=== PATIENT | male | born 1950 | race Caucasian/White ===

== ENCOUNTER → 2018-04-19 14:46 | Outpatient (CLI) | payer MEDICARE, OTHER, SELFPAY ==
--- NOTE | 2018-04-19 | DI.MRI.S_ITS ---
PROCEDURE: MR LUMBAR SPINE WO CON INDICATIONS: RADICULOPATHY LUMBAR REGION TECHNIQUE: Noncontrast sagittal T1 spin echo and T2 fast echo, sagittal STIR, axial T1 and T2 fast spin echo through the lumbar spine. In cases with scoliosis, additional coronal T2 fast spin echo may be performed. COMPARISON: None. FINDINGS: Image quality: Excellent. Alignment and Curvature: There is normal bony alignment. Bone Marrow: Marrow is of normal overall signal. No acute vertebral body compression fractures. Spinal Cord: Conus medullaris terminates at the T12 level. Visualized cord demonstrates normal signal and size. Paraspinous Soft Tissues: No paravertebral masses. L1-L2: Mild disc desiccation. Broad-based disc bulge. No canal stenosis. No neural foraminal narrowing. L2-L3: Mild disc desiccation and height loss. Broad-based disc bulge. Mild facet ligamentum flavum hypertrophy. No canal stenosis. Mild bilateral foraminal stenosis. L3-L4: Mild disc desiccation and height loss. This broad-based disc bulge. Mild facet ligamentum flavum hypertrophy. Mild canal stenosis. Mild epidural lipomatosis. Moderate right and mild left foraminal stenosis. L4-L5: Mild disc desiccation and height loss. Broad-based disc bulge. There is a right lateral broad-based disc bulge which results in severe right neuroforaminal stenosis. The exiting nerve root abuts this disc bulge. Small posterior focal high intensity zone. Moderate facet ligamentum flavum hypertrophy. Moderate canal stenosis. Severe left neuroforaminal narrowing. L5-S1: Mild disc bulge. No canal stenosis. Mild right and moderate left foraminal stenosis. Moderate epidural lipomatosis. IMPRESSION: 1. Mild disc desiccation and height loss throughout the lumbar spine. 2. Broad-based disc bulges and epidural lipomatosis with resultant mild canal stenosis at L3-4 and moderate canal stenosis at L4-5. 3. Right lateral L4-5 broad-based disc bulge which obscures the right neural foramen and results in severe right neuroforaminal narrowing. The exiting nerve root also abuts the disc bulge at this level. 4. Severe left L4-5 foraminal stenosis. Moderate left L5-S1 foraminal stenosis. Moderate right L3-4 foraminal stenosis. Dictated by: Kayce Hughes M.D. on 04/19/2018 at 16:01 Approved by: Kayce Hughes M.D. on 04/19/2018 at 16:07
== END ==
PROVIDERS: PCP Family Medicine; Visit Provider Orthopaedic Surgery
DX: M51.16 Intervertebral disc disorders with radiculopathy, lumbar region (principal); M51.17 Intervertebral disc disorders with radiculopathy, lumbosacral region; M48.061 Spinal stenosis, lumbar region without neurogenic claudication; M48.07 Spinal stenosis, lumbosacral region; E88.2 Lipomatosis, not elsewhere classified
CPT/HCPCS: 72148

== ENCOUNTER → 2018-07-12 08:09 | Outpatient (CLI) | payer MEDICARE, OTHER, SELFPAY ==
[2018-07-12 09:15] LABS: BUN Creatinine Ratio 22.3 (6-22); Blood Urea Nitrogen 29 mg/dL (9-20); Estimated Glomerular Filt Rate 55.2 mL/min (>60)
== END ==
PROVIDERS: Family Provider Family Medicine; PCP Family Medicine; Visit Provider Otolaryngology Facial Plastic Surgery
DX: H90.5 Unspecified sensorineural hearing loss (principal)
CPT/HCPCS: 36415; 82565; 84520

== ENCOUNTER → 2018-07-21 08:59 | Outpatient (CLI) | payer MEDICARE, OTHER, SELFPAY ==
--- NOTE | 2018-07-21 | DI.MRI.S_ITS ---
PROCEDURE: MR BRAIN (IAC) WWO CON INDICATIONS: Bilateral hearing loss TECHNIQUE: Noncontrast sagittal T1 spin echo, axial FLAIR, axial gradient echo, axial diffusion and ADC through the brain. Axial thin-slice 3D CISS, coronal TruFISP, axial T1 spin echo with fat saturation through the internal auditory canals. After the administration of contrast, thin slice axial and coronal T1 spin echo with fat saturation through the internal auditory canals, and axial T1 spin echo with fat saturation through the brain. COMPARISON: None. FINDINGS: Image quality: There is susceptibility artifact from dental implants. This examination is limited by involuntary motion artifact. Images are repeated, with some improvement. Cerebellopontine angles: No cerebellopontine angle masses. The inner ear structures appear normally formed. No suspicious enhancement in the internal auditory canal or along the courses of the 7th and 8th cranial nerves. No loly vascular loops are seen into the internal auditory canals. CSF spaces: Ventricles are normal in size and shape. No extra-axial fluid collections. Basal cisterns are patent. Brain: No intracranial bleeds or mass effects. Frank-white matter interface is intact. No abnormal intracranial enhancement. Diffusion weighted images demonstrate no acute ischemic insults. Brainstem appears normal. Normal intravascular flow voids are present. Skull and face: Calvarial marrow signal is normal. Orbits appear normal. Sinuses: Focal mucosal thickening is seen involving the anterior left ethmoid air cells. IMPRESSION: No significant abnormality is seen. Specifically, no masses or abnormal enhancement are seen within the cerebellopontine angle cisterns or within the internal auditory canals. Examination quality is limited by artifact from the patient's dental implants. Dictated by: Lino Newton M.D. on 07/21/2018 at 9:37 Approved by: Lino Newton M.D. on 07/21/2018 at 9:40
== END ==
PROVIDERS: Family Provider Family Medicine; PCP Family Medicine; Visit Provider Otolaryngology Facial Plastic Surgery
DX: H90.3 Sensorineural hearing loss, bilateral (principal)
CPT/HCPCS: 70553; A9579

== ENCOUNTER 2025-01-04 19:23 | Emergency (ER) | payer MEDICARE, OTHER, SELFPAY ==
[2025-01-04] VITALS (12 sets, daily range): BP systolic 127–161; BP diastolic 72–94; PULSE 96–111; RESP 17–26; TEMP 36.4; O2SAT 94–98; BMI 22.8
--- NOTE | 2025-01-04 19:32 | DI.RAD.S_ITS ---
PROCEDURE: XR CHEST 1V INDICATIONS: Shortness of breath TECHNIQUE: One view of the chest was acquired. COMPARISON: [facility], CR, XR CHEST 1 VIEW, 11/23/2024, 11:01. FINDINGS: Surgical changes and devices: Right Port-A-Cath unchanged. Lungs and pleura: Lungs are clear. No pleural effusions or pneumothorax. Poor inspiratory effort limiting evaluation. Mediastinum: Mediastinal contours appear normal. Heart size is enlarged. Bones and chest wall: No suspicious bony lesions. Overlying soft tissues appear unremarkable. IMPRESSION: No gross consolidations. Poor inspiratory effort limiting evaluation. Dictated by: Adrianna Wilson M.D. on 01/04/2025 at 20:48 Approved by: Adiranna Wilson M.D. on 01/04/2025 at 20:48
--- NOTE | 2025-01-04 19:40 | EKG_ITS ---
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
[2025-01-04 19:46] LABS: Add Manual Diff / Slide Review NO; Basophils Absolute Auto 100 /uL (0-100); Basophils Percent Auto 0.4 % (0-2); Eosinophils Absolute Auto 0 /uL (0-450); Hematocrit 33.6 % (41-53); Hemoglobin 11.3 g/dL (13.5-17.5); Lymphocytes Absolute Auto 700 /uL (1100-4500); Lymphocytes Percent Auto 4.3 % (25-40); Mean Corpuscular HGB Conc 33.7 % (30-36); Mean Corpuscular Hemoglobin 30.6 PG (26-34); Mean Corpuscular Volume 90.7 fL (80-100); Monocytes Absolute Auto 1500 /uL (0-900); Monocytes Percent Auto 8.7 % (3-14); Neutrophils Absolute Auto 14500 /uL (1500-7000); Neutrophils Percent Auto 86.6 % (50-75); Platelet Count 548 X10^3/uL (150-400); Red Cell Distribution Width 14.1 % (11.6-14.8); White Blood Cell Count 16.8 X10^3/uL (4.5-11.0)
[2025-01-04 19:50] LABS: INR 1.1 (0.9-1.3); Prothrombin Time 12.5 SECONDS (9.4-12.5)
[2025-01-04 19:54] LABS: Alanine Aminotransferase 124 IU/L (<50); Albumin 3.9 g/dL (3.5-5.0); Aspartate Aminotransferase 372 IU/L (17-59); BUN Creatinine Ratio 42.9 (6-22); Bilirubin Total 3.7 mg/dL (0.2-1.3); Blood Urea Nitrogen 94 mg/dL (9-20); Calcium 9.4 mg/dL (8.4-10.2); Carbon Dioxide 27 mmol/L (22-32); Chloride 81 mmol/L (98-107); Estimated Glomerular Filt Rate 31 mL/min (>60); Glucose 146 mg/dL (70-99); HEMOLYSIS 21 (0-50); Potassium 4.6 mmol/L (3.4-5.1); Sodium 123 mmol/L (137-145); Total Protein 7.9 g/dL (6.3-8.2)
[2025-01-04 20:02] LABS: Alkaline Phosphatase 1877 U/L (38-126)
[2025-01-04 20:06] LABS: NT-proBNP (BNP-Adult 18+) 2180 pg/mL (<125); Troponin I < 0.012 ng/mL (0.01-0.034)
--- NOTE | 2025-01-04 20:09 | PC.NURSE ---
Imaging at bedside
[2025-01-04 21:16] LABS: Reflexed Lactate in 2 Hours Y
--- NOTE | 2025-01-04 22:00 | DI.CT.S_ITS ---
PROCEDURE: CT ABDOMEN PELVIS WO CON INDICATIONS: Abdominal distention, lower extremity edema, creatinine elev TECHNIQUE: CT of the abdomen and pelvis was obtained without intravenous contrast. Coronal and sagittal reformats were performed. For radiation dose reduction, the following was used: automated exposure control, adjustment of mA and/or kV according to patient size. COMPARISON: [facility], MR, MR ABDOMEN PANCREAS PROTOCOL, 12/30/2024, 10:38. [facility], CT, CT ABDOMEN PELVIS WITH CONTRAST, 12/25/2024, 3:42. FINDINGS: Image quality: Diagnostic. Lower Chest: Minimal left effusion. This is new compared to prior exam. Small areas of scarring/nodularity are present in the right middle lobe as well as nodularity in the right base, unchanged. Partially calcified mediastinal lymph nodes. ABDOMEN: Liver: Multiple low-attenuation hepatic masses poorly characterized secondary to lack of contrast but felt to be grossly similar to most recent prior exams. Gallbladder: Defined gallbladder is not visualized. Amorphous soft tissue is present in the gallbladder fossa, unchanged. Biliary ducts: No biliary dilation. Pancreas: No ductal dilation. Spleen: Size is within normal limits. Calcifications. Adrenal Glands: No adrenal nodules. Kidneys and Ureters: Mild appearance right hydronephrosis and hydroureter, unchanged. Stomach and Bowel: Normal colonic caliber, without significant wall thickening. Peritoneum: Increased ascites compared to prior exam. Areas of mesenteric coarsening are present relatively unchanged as well as areas of nodularity. Ventral Wall: No significant hernia. Abdominal Nodes: Retrocaval, aortocaval, periaortic adenopathy is present, unchanged. Vessels: Aorta and inferior vena cava are normal in size. PELVIS: Pelvic Organs: Unremarkable. Bladder: Unremarkable. Pelvic Nodes: No enlarged lymph nodes. Miscellaneous: No inguinal hernias are seen. Bones: No aggressive osseous abnormality. IMPRESSION: Multiple hepatic masses with appearance of abnormal soft tissue mass in the gallbladder fossa, adenopathy as well as peritoneal carcinomatosis consistent with prior malignancy overall unchanged. Ascites mildly increased compared to prior exam. Areas of nodularity within the lungs are unchanged and nonspecific although metastatic disease cannot be excluded. Minimal left effusion progressive. Calcifications above consistent with prior granulomatous exposure Dictated by: Adrianna Wilson M.D. on 01/04/2025 at 22:59 Approved by: Adrianna Wilson M.D. on 01/04/2025 at 23:03
[2025-01-04] MEDS: ONDANSETRON 4 MG/2 ML INJ IV (22:07)
[2025-01-04] MEDS: FUROSEMIDE 40 MG/4 ML VIAL IV (22:07)
[2025-01-04] MEDS: HYDROMORPHONE 1 MG INJ IV (22:08)
--- NOTE | 2025-01-04 22:11 | PC.NURSE ---
Pt to imaging in ED stretcher with technical intern
--- NOTE | 2025-01-04 22:45 | ED_ITS ---
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 Liz at [facility] with the appointment noon tomorrow, recent admission to [facility] for hyponatremia, discharged on continued Lasix therapy for ascites and peripheral edema, taking new oral sodium chloride, missed doses sodium chloride today, feels that this is making him have hiccups. Has more lower extremity edema. Has more abdominal distention. Related Data Allergies Allergy/AdvReac Type Severity Reaction Status Date / Time No Known Drug Allergies Allergy Verified 01/04/25 19:43 Patient History Social History Smoking Status: Unknown if ever smoked Smoking Status: Unknown if ever smoked Exam Narrative Exam Narrative: GENERAL: Well-developed patient, in mild distress. HEAD: Atraumatic. Normocephalic. EYES: Pupils equal round and reactive. Extraocular motions intact. No scleral icterus. No injection or drainage. ENT: Nose without bleeding, purulent drainage. Throat without erythema, tonsillar hypertrophy or exudate. Airway patent. NECK: Trachea midline. Non tender CARDIOVASCULAR: Regular rate and rhythm without murmurs, gallops, or rubs. RESPIRATORY: Clear to auscultation. Breath sounds equal bilaterally. No wheezes, rales, or rhonchi. GASTROINTESTINAL: Abdominal distention, nontender, bowel tones not particularly increased or decreased, no rushes or tinkles. EXTREMITIES: Bilateral lower extremity edema to the feet but not particularly above the ankles. BACK: Nontender without deformity or crepitance. No flank tenderness. NEURO: AOx3. Motor functions grossly nonfocal. SKIN: No rash or erythema of visible areas Initial Vital Signs Initial Vital Signs: Vital Signs Temperature 97.6 F 01/04/25 19:25 Pulse Rate 110 H 01/04/25 19:25 Respiratory Rate 24 01/04/25 19:25 Blood Pressure 157/72 H 01/04/25 19:25 Pulse Oximetry 96 01/04/25 19:25 Oxygen Delivery Method Room Air 01/04/25 19:25 Course Orders Ordered: ED Orders 01/04/25 19:30 Complete Blood Count AUTO DIFF Stat Comprehensive Metabolic Panel Stat Lactate (Lactic Acid) Stat NT-proBNP (BNP-Adult 18+) Stat Prothrombin Time INR Stat Troponin I Stat 01/04/25 19:32 XR chest 1V Stat EKG-12 Lead Stat Measure peak expiratory flow STAT RT Consult Eval and Treat STAT 01/04/25 22:00 CT abdomen pelvis wo con Stat Discontinued Medications Furosemide (Furosemide 40 Mg/4 Ml Vial) 40 mg IV NOW ONE Stop: 01/04/25 21:46 Last Admin: 01/04/25 22:07 Dose: 40 mg Documented By: DAMIAN Hydromorphone HCl (Hydromorphone 1 Mg Inj) 1 mg IV NOW ONE Stop: 01/04/25 22:02 Last Admin: 01/04/25 22:08 Dose: 1 mg Documented By: DAMIAN Ondansetron HCl (Ondansetron 4 Mg/2 Ml Inj) 4 mg IV NOW ONE Stop: 01/04/25 22:02 Last Admin: 01/04/25 22:07 Dose: 4 mg Documented By: DAMIAN Ondansetron HCl (Ondansetron 4 Mg Odt) 4 mg SL NOW ONE Stop: 01/04/25 23:58 Last Admin: 01/05/25 00:13 Dose: Not Given Documented By: DAMIAN Ondansetron HCl (Ondansetron 4 Mg Odt Prepack) 1 bottle MISC DIRECTED ONE Stop: 01/05/25 00:10 Last Admin: 01/05/25 00:12 Dose: 1 bottle Documented By: DAMIAN Vital Signs Vital signs: Vital Signs - 8 hr 01/04/25 19:30 01/04/25 19:30 01/04/25 20:00 Pulse Rate 111 H Respiratory Rate 26 H Blood Pressure 157/77 H 141/87 H Pulse Oximetry 97 Oxygen Delivery Method Room Air 01/04/25 20:00 01/04/25 20:30 01/04/25 20:30 Pulse Rate 101 H 98 H Respiratory Rate 25 H 24 Blood Pressure 129/81 Pulse Oximetry 95 97 Oxygen Delivery Method Room Air Room Air 01/04/25 21:00 01/04/25 21:00 01/04/25 21:30 Pulse Rate 97 H 96 H Respiratory Rate 22 22 Blood Pressure 134/86 Pulse Oximetry 96 98 Oxygen Delivery Method Room Air Room Air 01/04/25 21:30 01/04/25 22:00 01/04/25 22:00 Pulse Rate 100 H Respiratory Rate 26 H Blood Pressure 161/84 H 151/94 H Pulse Oximetry 96 Oxygen Delivery Method Room Air 01/04/25 22:23 01/04/25 22:23 01/04/25 22:30 Pulse Rate 103 H Respiratory Rate 23 Blood Pressure 160/75 H 157/81 H Pulse Oximetry 95 Oxygen Delivery Method Room Air 01/04/25 22:30 01/04/25 23:00 01/04/25 23:00 Pulse Rate 102 H 101 H Respiratory Rate 21 25 H Blood Pressure 127/77 Pulse Oximetry 96 96 Oxygen Delivery Method Room Air Room Air 01/04/25 23:30 01/04/25 23:31 01/04/25 23:31 Pulse Rate 100 H 100 H Respiratory Rate 17 19 Blood Pressure 139/76 Pulse Oximetry 94 94 Oxygen Delivery Method Room Air Room Air 01/05/25 00:00 01/05/25 00:00 01/05/25 00:15 Pulse Rate 105 H Respiratory Rate 24 Blood Pressure 140/72 147/77 H Pulse Oximetry 97 Oxygen Delivery Method Room Air 01/05/25 00:15 Pulse Rate 108 H Respiratory Rate 21 Blood Pressure Pulse Oximetry 97 Oxygen Delivery Method Room Air Medical Decision Making Lab Data Lab results reviewed: Yes I reviewed the patient's lab results. 01/04/25 19:30 01/04/25 19:30 Labs: Lab Results 01/04/25 Range/Units 19:30 WBC 16.8 H (4.5-11.0) X10^3/uL RBC 3.70 L (4.5-5.9) X10^6/uL Hgb 11.3 L (13.5-17.5) g/dL Hct 33.6 L (41-53) % MCV 90.7 (80-100) fL MCH 30.6 (26-34) PG MCHC 33.7 (30-36) % RDW 14.1 (11.6-14.8) % Plt Count 548 H (150-400) X10^3/uL Neut % (Auto) 86.6 H (50-75) % Lymph % (Auto) 4.3 L (25-40) % [place] % (Auto) 8.7 (3-14) % Eos % (Auto) 0.0 L (2-4) % Baso % (Auto) 0.4 (0-2) % Neut # (Auto) 15287 H (4106-3800) /uL Lymph # (Auto) 700 L (5357-4358) /uL [place] # (Auto) 1500 H (0-900) /uL Eos # (Auto) 0 (0-450) /uL Baso # (Auto) 100 (0-100) /uL PT 12.5 (9.4-12.5) SECONDS INR 1.1 (0.9-1.3) Sodium 123 L (137-145) mmol/L Potassium 4.6 (3.4-5.1) mmol/L Chloride 81 L (98-107) mmol/L Carbon Dioxide 27 (22-32) mmol/L BUN 94 H (9-20) mg/dL Creatinine 2.19 H (0.66-1.25) mg/dL Estimated GFR 31 L (>60) mL/min BUN/Creatinine Ratio 42.9 H (6-22) Glucose 146 H (70-99) mg/dL Lactate 3.0 H (0.7-2.1) mmol/L Calcium 9.4 (8.4-10.2) mg/dL Total Bilirubin 3.7 H (0.2-1.3) mg/dL AST 372 H (17-59) IU/L ALT 124 H (<50) IU/L Alkaline Phosphatase 1877 H (38-126) U/L Troponin I < 0.012 (0.01-0.034) ng/mL NT-Pro-B Natriuret Pep 2180 H (<125) pg/mL Total Protein 7.9 (6.3-8.2) g/dL Albumin 3.9 (3.5-5.0) g/dL Globulin 4.0 (1.7-4.1) g/dL Albumin/Globulin Ratio 1.0 (1.0-2.8) Imaging Data Chest x-ray: Radiologist's Impression: [address] [address] XRay Report Signed Patient: Aleksander Sheppard MR#: [id number] : 1950 Acct:[id number] Age/Sex: 74 / M Date of Service: 01/04/25 Loc: ED Accession Number: [id number] Procedure: XR chest 1V Ordering Provider: Ji Isabel MD PROCEDURE: XR CHEST 1V INDICATIONS: Shortness of breath TECHNIQUE: One view of the chest was acquired. COMPARISON: Located [facility], CR, XR CHEST 1 VIEW, 11/23/2024, 11:01. FINDINGS: Surgical changes and devices: Right Port-A-Cath unchanged. Lungs and pleura: Lungs are clear. No pleural effusions or pneumothorax. Poor inspiratory effort limiting evaluation. Mediastinum: Mediastinal contours appear normal. Heart size is enlarged. Bones and chest wall: No suspicious bony lesions. Overlying soft tissues appear unremarkable. IMPRESSION: No gross consolidations. Poor inspiratory effort limiting evaluation. Dictated by: Adrianna Wilson M.D. on 01/04/2025 at 20:48 Approved by: Adrianna Wilson M.D. on 01/04/2025 at 20:48 CT scan - abdomen/pelvis: Radiologist's Impression: [place] [address] CT Scan Report Signed Patient: Aleksander Sheppard MR#: [id number] : 1950 Acct:[id number] Age/Sex: 74 / M Date of Service: 01/04/25 Loc: ED Accession Number: [id number] Procedure: CT abdomen pelvis wo con Ordering Provider: Ji Isabel MD PROCEDURE: CT ABDOMEN PELVIS WO CON INDICATIONS: Abdominal distention, lower extremity edema, creatinine elev TECHNIQUE: CT of the abdomen and pelvis was obtained without intravenous contrast. Coronal and sagittal reformats were performed. For radiation dose reduction, the following was used: automated exposure control, adjustment of mA and/or kV according to patient size. COMPARISON: Located [facility], MR, MR ABDOMEN PANCREAS PROTOCOL, 12/30/2024, 10:38. Located [facility], CT, CT ABDOMEN PELVIS WITH CONTRAST, 12/25/2024, 3:42. FINDINGS: Image quality: Diagnostic. Lower Chest: Minimal left effusion. This is new compared to prior exam. Small areas of scarring/nodularity are present in the right middle lobe as well as nodularity in the right base, unchanged. Partially calcified mediastinal lymph nodes. ABDOMEN: Liver: Multiple low-attenuation hepatic masses poorly characterized secondary to lack of contrast but felt to be grossly similar to most recent prior exams. Gallbladder: Defined gallbladder is not visualized. Amorphous soft tissue is present in the gallbladder fossa, unchanged. Biliary ducts: No biliary dilation. Pancreas: No ductal dilation. Spleen: Size is within normal limits. Calcifications. Adrenal Glands: No adrenal nodules. Kidneys and Ureters: Mild appearance right hydronephrosis and hydroureter, unchanged. Stomach and Bowel: Normal colonic caliber, without significant wall thickening. Peritoneum: Increased ascites compared to prior exam. Areas of mesenteric coarsening are present relatively unchanged as well as areas of nodularity. Ventral Wall: No significant hernia. Abdominal Nodes: Retrocaval, aortocaval, periaortic adenopathy is present, unchanged. Vessels: Aorta and inferior vena cava are normal in size. PELVIS: Pelvic Organs: Unremarkable. Bladder: Unremarkable. Pelvic Nodes: No enlarged lymph nodes. Miscellaneous: No inguinal hernias are seen. Bones: No aggressive osseous abnormality. IMPRESSION: Multiple hepatic masses with appearance of abnormal soft tissue mass in the gallbladder fossa, adenopathy as well as peritoneal carcinomatosis consistent with prior malignancy overall unchanged. Ascites mildly increased compared to prior exam. Areas of nodularity within the lungs are unchanged and nonspecific although metastatic disease cannot be excluded. Minimal left effusion progressive. Calcifications above consistent with prior granulomatous exposure Dictated by: Adrianna Wilson M.D. on 01/04/2025 at 22:59 Approved by: Adrianna Wilson M.D. on 01/04/2025 at 23:03 ECG Data Attestation: I personally reviewed and interpreted this ECG as follows: Interpretation: 1940, sinus tachycardia with rate of 109, no obvious ST segment elevation or depression changes. KS 160, QRS 92, QTC 441. MDM Narrative Medical decision making narrative: 74-year-old male with history of metastatic gallbladder cancer awaiting level appointment with oncology Dr. Kimbrough at [facility] scheduled tomorrow noon. Recent admission for hyponatremia at [facility], sodium 119 recalled by family members, unclear level at discharge, has discontinued taking his sodium chloride supplementation due to hiccuping. Labs pending. Creatinine elevation mild but increased from available [facility] records, no records received from [facility]. Sodium [address] abdomen and pelvis noncontrast study ordered. CT abdomen and pelvis noncontrast. IMPRESSION: Multiple hepatic masses with appearance of abnormal soft tissue mass in the gallbladder fossa, adenopathy as well as peritoneal carcinomatosis consistent with prior malignancy overall unchanged. Ascites mildly increased compared to prior exam. Areas of nodularity within the lungs are unchanged and nonspecific although metastatic disease cannot be excluded. Minimal left effusion progressive. Calcifications above consistent with prior granulomatous exposure. See radiology report. IV Lasix for peripheral edema, patient/family aware this could further increase creatinine, and further decreased sodium levels but perhaps help symptoms. They are amenable to having the diuretic medication. We discussed attempt at therapeutic paracentesis, they would prefer to have Interventional Radiology do that, not available at this hour, can further discuss with their oncology provider tomorrow at noon appointment. We will reach out to [facility] oncology on-call. [id number], case discussed with Dr. Strauss [facility] oncology cross covering for Dr. Liz, who encouraged this patient to follow up tomorrow with scheduled noon appointment, no need for more urgent transfer now, has extensive metastatic disease on scanning, likely will need discussion about palliative care options and comfort measures. Agrees with home pack ondansetron ODT to use if needed, has access to pain medications, can continue sodium chloride and oral Lasix for now. Encouraged to take sodium chloride to help maintain sodium levels, as this we will also help tolerate Lasix doses to hopefully address edema symptoms. Patient and family amenable to this plan. Discharged home with family. Follow up with Oncology tomorrow at [facility] noon visit as planned. Return precautions discussed. Discharge Plan Departure Patient Disposition: Home Clinical Impression: Metastasis from gallbladder cancer, Abdominal pain, Bilateral leg edema, Hyponatremia, Ascites Activity Restrictions/Additional Instructions: History of metastatic gallbladder cancer, recent admission [facility] for low sodium hyponatremia, some hiccups associated with sodium chloride new prescription, taking Lasix, still having lower extremity swelling to the feet. IV Lasix given. Kidney function not as good as recent studies available here, though we did not have access to [facility] recent labs for now. Sodium was 123, reportedly higher than 119 during recent [facility] hospitalization stay. Distended abdomen without tenderness on examination. CT abdomen pelvis showed widely metastatic disease with numerous liver lesions, and also some mentioned of lung lesions, no bowel obstruction, some ascites fluid ?mildly? increased from prior study. We did discuss needle tapping of fluid, could cause perforation, if performed and necessary perhaps better done by Interventional Radiology, not available here. You have an appointment tomorrow with your oncologist Dr. Liz. I discussed the situation and CT findings and lab findings tonight with on-call cross cover oncologist Dr. Luna at [facility]. He recommended follow up with that noon appointment tomorrow with Dr. Liz, for assessment of plan about what might be possible and not possible, regarding therapeutic options, risks and benefits. He suggests continued use of your sodium chloride so that we can hopefully continue doses of Lasix to keep fluid off of your legs and maybe even in your abdominal cavity. You might require Interventional Radiology procedure to take off abdominal fluid, if that seems indicated. We gave home pack of ondansetron/Zofran to help control nausea if it is needed. You have access to your oxycodone pain medication at home and have been able to keep oral medicines down at this time. Discharged home with family. Follow up with your oncologist tomorrow at [facility] noon appointment as planned. Return earlier to this/nearest emergency department for any change worsening symptoms or any concerns prior. Referrals: Deniz Gross [Primary Care Provider, Medical] Gary Liz MD [Physician, Oncology] Stand Alone Forms: Patient Portal/API
--- NOTE | 2025-01-04 23:37 | PC.NURSE ---
Dr. Isabel currently at bedside
[2025-01-05] VITALS: BP 140/72; PULSE 105; RESP 24; O2SAT 97
[2025-01-05] MEDS: ONDANSETRON 4 MG ODT PREPACK 1 BOTTLE MISC (00:12)
[2025-01-05 00:15] VITALS: BP 147/77; PULSE 108; RESP 21; O2SAT 97
== END 2025-01-05 00:34 | disposition home or self-care (01) ==
PROVIDERS: Emergency Provider Emergency Medicine; Family Provider Family Medicine; PCP Family Medicine
DX: R60.0 Localized edema (principal); C23 Malignant neoplasm of gallbladder; C78.7 Secondary malignant neoplasm of liver and intrahepatic bile duct; C78.6 Secondary malignant neoplasm of retroperitoneum and peritoneum; R10.9 Unspecified abdominal pain; E87.1 Hypo-osmolality and hyponatremia; R18.8 Other ascites
CPT/HCPCS: 36415; 71045; 74176; 80053; 83605; 83880; 84484; 85025; 85610; 93005; 96374; 96375; 99284; J1171; J1938; J2405